=== PATIENT | male | born 1985 | race African-American/Black ===

== ENCOUNTER 2021-07-05 17:19 | Emergency (ER) | payer BC ==
[~2021-07-05] VITALS: Ht 180.3 cm; Wt 81.6 kg
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
--- NOTE | 2021-07-05 17:41 | NUR ---
PT IS IN ROOM #2B. DR CARVER EVALUATED TH EPT.
--- NOTE | 2021-07-05 17:43 | NUR ---
MD at bedside, medical screening exam in progress.
--- NOTE | 2021-07-05 18:04 | NUR ---
Pts abrasion cleaned with NS and applied dressing.
[2021-07-05] MEDS ORDERED: HYDR-4209 PO (18:14)
--- NOTE | 2021-07-05 18:46 | NUR ---
Patient discharged to home in stable condition. Written and verbal after care instructions given. Patient verbalizes understanding of instructions. Stressed follow up or return to ER for worsening s/s. Instructed not to drive when taking norco pain medication.
[2021-07-05 18:50] VITALS: BP 125/70
== END 2021-07-05 18:50 | disposition home or self-care (01) ==
LOC: ER 17:24
DX: S60.512A Abrasion of left hand, initial encounter (principal); S40.811A Abrasion of right upper arm, initial encounter; S40.211A Abrasion of right shoulder, initial encounter; S60.410A Abrasion of right index finger, initial encounter; S80.11XA Contusion of right lower leg, initial encounter; V29.9XXA Motorcycle rider (driver) (passenger) injured in unspecified traffic accident, initial encounter; Y92.410 Unspecified street and highway as the place of occurrence of the external cause; M79.604 Pain in right leg
CPT/HCPCS: 73590; A4663